=== PATIENT | male | born 1975 | race Caucasian/White ===

== ENCOUNTER 2024-01-29 08:16 | Day surgery (SDC) | payer OTHER ==
[~2024-01-29 08:16] MED LIST: Midazolam 1 MG/ML 2 ML SDV ONE; Propofol 200 MG/20 ML SDV ONE; fentaNYL 50 MCG/ML SDV ONE
[2024-01-29] MEDS ORDERED: Propofol 200 MG/20 ML SDV ONE (09:00)
[2024-01-29] MEDS: Sodium Chloride 0.9% 1,000 ML IV SCH (09:22)
== END 2024-01-29 11:25 | disposition home or self-care (01) ==
LOC: JP.SDS 08:16
PROVIDERS: ATTEND Surgery
DX: Z12.11 Encounter for screening for malignant neoplasm of colon (principal); D12.5 Benign neoplasm of sigmoid colon
CPT/HCPCS: 00811; 45380; 88305; J2250; J2704; J3010; J7030